=== PATIENT | male | born 1965 | race African-American/Black ===

== ENCOUNTER 2019-08-19 15:56 | Emergency (ER) | payer SELFPAY ==
[~2019-08-19] VITALS: Ht 193 cm; Wt 74.8 kg
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
--- NOTE | 2019-08-19 16:11 | NUR ---
ED Nurse Note:[employer] officers came to take report from pt. but he refused, it was [facility] [id number]
[2019-08-19] MEDS ORDERED: Tetanus/Diptheria/Pertussis IM ONE (16:15)
[2019-08-19 16:30] VITALS: BP 148/88
--- NOTE | 2019-08-19 17:33 | Diagnostic Imaging Report ---
EXAM: CT Head Without Intravenous Contrast CLINICAL HISTORY: H/A TECHNIQUE: Axial computed tomography images of the head/brain without intravenous contrast. CTDI is 53.4 mGy and DLP is 992.1 mGy-cm. One or more of the following dose reduction techniques were used: automated exposure control, adjustment of the mA and/or kV according to patient size, use of iterative reconstruction technique. COMPARISON: No relevant prior studies available. FINDINGS: Brain: No intracranial hemorrhage or mass effect. Ventricles: Unremarkable. No ventriculomegaly. Bones/joints: Unremarkable. No acute fracture. Soft tissues: Thickening and suspected laceration to the leftward forehead. Sinuses: Minimal ethmoidal mucosal thickening. Mastoid air cells: Unremarkable as visualized. No mastoid effusion. IMPRESSION: No acute brain or skull injury. Suspected laceration to the leftward forehead
[2019-08-19] MEDS ORDERED: Lidocaine 1% 10mg/ml/EPI 0.01mg/ml 30ml INJ ONE (18:00)
[2019-08-19] MEDS ORDERED: BACITRACIN15 GM TOPIC (19:01)
[2019-08-19 19:10] VITALS: BP 148/88
--- NOTE | 2019-08-19 19:10 | NUR ---
ER DISCHARGE NOTE: Patient is cleared to be discharged per ERMD, pt is aox4, on room air, with stable vital signs. pt was given dc and prescription instructions, pt was able to verbalize understanding, pt id band and iv site removed without complications. pt is able to ambulate with steady gait. pt took all belongings.
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
== END 2019-08-19 19:18 | disposition home or self-care (01) ==
LOC: EDBD 15:56 → EDUNIT# 15:56 → EMR 16:35
DX: S01.81XA Laceration without foreign body of other part of head, initial encounter (principal); S09.90XA Unspecified injury of head, initial encounter; F10.129 Alcohol abuse with intoxication, unspecified; Y04.2XXA Assault by strike against or bumped into by another person, initial encounter; Y92.9 Unspecified place or not applicable; Z23 Encounter for immunization
CPT/HCPCS: 12013; 70450; 90471; 90715; 99284; J7030